=== PATIENT | male | born 2000 | race Caucasian/White ===

== ENCOUNTER 2023-01-07 08:05 | Emergency (ER) | payer OTHER ==
[~2023-01-07] VITALS: Ht 188 cm; Wt 95.2 kg
[2023-01-07 09:13] VITALS: BP 130/86
== END 2023-01-07 09:13 | disposition home or self-care (01) ==
LOC: ED 08:05
DX: T59.811A Toxic effect of smoke, accidental (unintentional), initial encounter (principal); Y92.009 Unspecified place in unspecified non-institutional (private) residence as the place of occurrence of the external cause
CPT/HCPCS: 94640; 94664; 99283